=== PATIENT | female | born 1945 | race Caucasian/White ===

== ENCOUNTER 2023-01-29 14:30 | Inpatient (IN) | payer MEDICARE ==
[2023-01-29] MEDS ORDERED: Furosemide 20 MG TAB PO PRN (15:54)
[2023-01-29] MEDS ORDERED: Ondansetron ODT 4 MG TAB PO PRN (18:11)
[2023-01-29] MEDS: Acetaminophen 325 MG TAB PO PRN (22:16)
[2023-01-29] MEDS: Metoprolol Tartrate 25 MG TAB PO SCH (22:16)
[2023-01-30 07:10] LABS: #Lymphocytes 0.8 thou/uL (1.20-3.40); #Monocytes 0.6 thou/uL (0.11-0.59); #Neutrophils 7.5 thou/uL (1.40-6.50); %Basophils 0.3 % (0.0-1.0); %Eosinophils 0.3 % (0.0-10.0); %Lymphocytes 9.3 % (21.0-51.0); %Monocytes 6.8 % (0.0-10.0); %Neutrophils 83.3 % (42.0-75.0); Hemoglobin 13.8 g/dL (12.0-16.0); Mean Corpuscular HGB CONC 33.3 g/dL (32.0-36.0); Mean Corpuscular Volume 81.1 fl (78.0-98.0); Mean Platelet Volume 8.5 fL (7.4-10.4); Platelet Count 218 10x3/uL (130-400); RBC Distribution Width 12.4 % (11.5-14.5); Red Blood Cell (RBC) Count 5.11 mill/uL (4.20-5.40)
[2023-01-30 07:27] LABS: ALT (SGPT) 132 U/L (8-55); AST (SGOT) 77 U/L (5-34); Albumin 3.9 g/dL (3.4-4.8); Alkaline Phosphatase 90 U/L (40-110); Anion Gap 12 mmol/L (10-20); BUN (Urea Nitrogen) 32 mg/dL (9.8-20.1); Bilirubin, Total 1.1 mg/dL (0.2-1.2); Calc. Creatinine Clearance 78 mL/min (70-130); Calcium 10.5 mg/dL (7.8-10.44); Carbon Dioxide 23 mmol/L (23-31); Chloride 109 mmol/L (98-107); Estimated GFR 78; Globulin 2.2 g/dL (2.4-3.5); Glucose 81 mg/dL (83-110); Potassium 4.2 mmol/L (3.5-5.1); Protein, Total 6.1 g/dL (5.8-8.1); Sodium 140 mmol/L (136-145)
[2023-01-30] MEDS: Benzonatate 100 MG CAP PO SCH ×3 (08:30→20:54)
[2023-01-30] MEDS: Metoprolol Tartrate 25 MG TAB PO SCH ×2 (08:30→20:54)
[2023-01-30] MEDS: Dexamethasone 4 MG TAB PO SCH (08:30)
[2023-01-30] MEDS: Clopidogrel Bisulfate 75 MG TAB PO SCH (08:31)
[2023-01-30] MEDS: Amlodipine 5 MG TAB PO SCH (08:31)
[2023-01-30] MEDS ORDERED: Rosuvastatin 10 MG TAB PO SCH (09:00)
[2023-01-30] MEDS ORDERED: Metoclopramide HCl 10 MG TAB PO SCH (09:00)
[2023-01-30] MEDS ORDERED: Albuterol 200 PUFF (6.7GM INHALER) INH PRN (15:35)
[2023-01-30] MEDS ORDERED: Metoclopramide 10 MG/10 ML UDCUP PO PRN (19:34)
[2023-01-31 05:48] LABS: ALT (SGPT) 106 U/L (8-55); AST (SGOT) 47 U/L (5-34); Albumin 3.6 g/dL (3.4-4.8); Alkaline Phosphatase 94 U/L (40-110); Bilirubin, Direct 0.4 mg/dL (0.1-0.3); Protein, Total 6.4 g/dL (5.8-8.1)
[2023-01-31 05:50] LABS: ALT (SGPT) 107 U/L (8-55); AST (SGOT) 48 U/L (5-34); Albumin 3.6 g/dL (3.4-4.8); Alkaline Phosphatase 91 U/L (40-110); Anion Gap 12 mmol/L (10-20); BUN (Urea Nitrogen) 31 mg/dL (9.8-20.1); Calc. Creatinine Clearance 86 mL/min (70-130); Calcium 10.2 mg/dL (7.8-10.44); Carbon Dioxide 20 mmol/L (23-31); Chloride 110 mmol/L (98-107); Estimated GFR 88; Globulin 2.9 g/dL (2.4-3.5); Glucose 91 mg/dL (83-110); Protein, Total 6.5 g/dL (5.8-8.1); Sodium 138 mmol/L (136-145)
[2023-01-31] MEDS: Amlodipine 5 MG TAB PO SCH (09:05)
[2023-01-31] MEDS: Clopidogrel Bisulfate 75 MG TAB PO SCH (09:05)
[2023-01-31] MEDS: Dexamethasone 4 MG TAB PO SCH (09:05)
[2023-01-31] MEDS: Benzonatate 100 MG CAP PO SCH ×3 (09:05→19:59)
[2023-01-31] MEDS: Furosemide 20 MG TAB PO SCH (09:05)
[2023-01-31] MEDS: Metoprolol Tartrate 25 MG TAB PO SCH ×2 (09:06→19:59)
[2023-02-01] MEDS: Dexamethasone 4 MG TAB PO SCH (08:17)
[2023-02-01] MEDS: Benzonatate 100 MG CAP PO SCH ×3 (08:17→21:10)
[2023-02-01] MEDS: Clopidogrel Bisulfate 75 MG TAB PO SCH (08:17)
[2023-02-01] MEDS: Metoprolol Tartrate 25 MG TAB PO SCH ×2 (08:17→21:10)
[2023-02-01] MEDS: Amlodipine 5 MG TAB PO SCH (08:17)
[2023-02-01] MEDS: Furosemide 20 MG TAB PO SCH (08:18)
[2023-02-01] MEDS ORDERED: FLU VACC QS2022-23(65YR UP)/PF 240 MCG/0.7 ML SYRINGE IM ONE (16:15)
[2023-02-02] MEDS: Benzonatate 100 MG CAP PO SCH ×3 (08:28→20:13)
[2023-02-02] MEDS: Clopidogrel Bisulfate 75 MG TAB PO SCH (08:28)
[2023-02-02] MEDS: Dexamethasone 4 MG TAB PO SCH (08:28)
[2023-02-02] MEDS: Metoprolol Tartrate 25 MG TAB PO SCH ×2 (08:28→20:13)
[2023-02-02] MEDS: Furosemide 20 MG TAB PO SCH (08:28)
[2023-02-02] MEDS: Amlodipine 5 MG TAB PO SCH (08:28)
[2023-02-03 05:27] LABS: #Eosinphils 0.1 thou/uL (0.0-0.7); #Lymphocytes 1.2 thou/uL (1.20-3.40); #Monocytes 0.7 thou/uL (0.11-0.59); #Neutrophils 7.4 thou/uL (1.40-6.50); %Basophils 0.3 % (0.0-1.0); %Eosinophils 0.8 % (0.0-10.0); %Lymphocytes 12.3 % (21.0-51.0); %Monocytes 7.9 % (0.0-10.0); %Neutrophils 78.7 % (42.0-75.0); Hemoglobin 13.3 g/dL (12.0-16.0); Mean Corpuscular HGB CONC 33.9 g/dL (32.0-36.0); Mean Corpuscular Hemoglobin 27.6 pg (27.0-31.0); Mean Corpuscular Volume 81.4 fl (78.0-98.0); Mean Platelet Volume 8.7 fL (7.4-10.4); Platelet Count 173 10x3/uL (130-400); RBC Distribution Width 12.8 % (11.5-14.5); Red Blood Cell (RBC) Count 4.82 mill/uL (4.20-5.40); White Blood Cell (WBC) Count 9.4 10x3/uL (4.8-10.8)
[2023-02-03 05:41] LABS: ALT (SGPT) 113 U/L (8-55); AST (SGOT) 51 U/L (5-34); Albumin 3.6 g/dL (3.4-4.8); Alkaline Phosphatase 93 U/L (40-110); Anion Gap 12 mmol/L (10-20); BUN (Urea Nitrogen) 36 mg/dL (9.8-20.1); Calc. Creatinine Clearance 78 mL/min (70-130); Calcium 10.2 mg/dL (7.8-10.44); Carbon Dioxide 21 mmol/L (23-31); Chloride 109 mmol/L (98-107); Estimated GFR 78; Globulin 2.5 g/dL (2.4-3.5); Glucose 92 mg/dL (83-110); Protein, Total 6.1 g/dL (5.8-8.1); Sodium 138 mmol/L (136-145)
[2023-02-03] MEDS: Furosemide 20 MG TAB PO SCH (08:14)
[2023-02-03] MEDS: Dexamethasone 4 MG TAB PO SCH (08:14)
[2023-02-03] MEDS: Benzonatate 100 MG CAP PO SCH ×3 (08:14→21:15)
[2023-02-03] MEDS: Amlodipine 5 MG TAB PO SCH (08:14)
[2023-02-03] MEDS: Clopidogrel Bisulfate 75 MG TAB PO SCH (08:14)
[2023-02-03] MEDS: Metoprolol Tartrate 25 MG TAB PO SCH ×2 (08:14→21:15)
[2023-02-04] MEDS: Benzonatate 100 MG CAP PO SCH ×3 (08:04→20:59)
[2023-02-04] MEDS: Metoprolol Tartrate 25 MG TAB PO SCH ×2 (08:04→20:59)
[2023-02-04] MEDS: Amlodipine 5 MG TAB PO SCH (08:04)
[2023-02-04] MEDS: Furosemide 20 MG TAB PO SCH (08:04)
[2023-02-04] MEDS: Clopidogrel Bisulfate 75 MG TAB PO SCH (08:04)
[2023-02-05 05:18] LABS: #Eosinphils 0.2 thou/uL (0.0-0.7); #Lymphocytes 1.2 thou/uL (1.20-3.40); #Monocytes 0.7 thou/uL (0.11-0.59); #Neutrophils 6.9 thou/uL (1.40-6.50); %Basophils 0.4 % (0.0-1.0); %Lymphocytes 13.5 % (21.0-51.0); %Monocytes 7.7 % (0.0-10.0); %Neutrophils 76.4 % (42.0-75.0); Hemoglobin 14.1 g/dL (12.0-16.0); Mean Corpuscular HGB CONC 33.6 g/dL (32.0-36.0); Mean Corpuscular Hemoglobin 27.3 pg (27.0-31.0); Mean Corpuscular Volume 81.3 fl (78.0-98.0); Mean Platelet Volume 9.1 fL (7.4-10.4); Platelet Count 153 10x3/uL (130-400); RBC Distribution Width 12.9 % (11.5-14.5); Red Blood Cell (RBC) Count 5.18 mill/uL (4.20-5.40)
[2023-02-05 05:36] LABS: ALT (SGPT) 112 U/L (8-55); AST (SGOT) 43 U/L (5-34); Albumin 3.6 g/dL (3.4-4.8); Alkaline Phosphatase 98 U/L (40-110); Anion Gap 13 mmol/L (10-20); BUN (Urea Nitrogen) 39 mg/dL (9.8-20.1); Bilirubin, Total 1.3 mg/dL (0.2-1.2); Calc. Creatinine Clearance 76 mL/min (70-130); Calcium 9.8 mg/dL (7.8-10.44); Carbon Dioxide 22 mmol/L (23-31); Chloride 109 mmol/L (98-107); Estimated GFR 76; Globulin 2.2 g/dL (2.4-3.5); Glucose 92 mg/dL (83-110); Potassium 3.9 mmol/L (3.5-5.1); Protein, Total 5.8 g/dL (5.8-8.1); Sodium 140 mmol/L (136-145)
[2023-02-05] MEDS: Furosemide 20 MG TAB PO SCH (09:07)
[2023-02-05] MEDS: Clopidogrel Bisulfate 75 MG TAB PO SCH (09:07)
[2023-02-05] MEDS: Amlodipine 5 MG TAB PO SCH (09:07)
[2023-02-05] MEDS: Benzonatate 100 MG CAP PO SCH ×3 (09:07→20:51)
[2023-02-05] MEDS: Metoprolol Tartrate 25 MG TAB PO SCH ×2 (09:07→20:51)
[2023-02-05 14:02] LABS: HBCM Index 0.13 S/CO (0-0.79); HBSAg Index 0.28 S/CO (0-0.99); Hep A IgM AB Non-Reactive (NonReactive); Hep A IgM S/CO 0.17 S/CO (0-0.79); Hep B Surf Ag Non-Reactive S/CO (NonReactive); Hep C IgG Ab Non-Reactive (NonReactive); Hep C Index 0.07 S/CO (0-0.79); Hepatitis B Core IgM Abs Non-Reactive (NonReactive)
[2023-02-06] MEDS ORDERED: Sodium Bicarb 50 MEQ/50 ML Abboject 8.4% SYRINGE ONE (07:29)
[2023-02-06] MEDS: Benzonatate 100 MG CAP PO SCH ×3 (09:41→20:25)
[2023-02-06] MEDS: Metoprolol Tartrate 25 MG TAB PO SCH ×2 (09:41→20:25)
[2023-02-06] MEDS: Clopidogrel Bisulfate 75 MG TAB PO SCH (09:41)
[2023-02-06] MEDS: Amlodipine 5 MG TAB PO SCH (09:41)
[2023-02-06] MEDS: Furosemide 20 MG TAB PO SCH (09:41)
[2023-02-07] MEDS: Furosemide 20 MG TAB PO SCH (09:02)
[2023-02-07] MEDS: Metoprolol Tartrate 25 MG TAB PO SCH ×2 (09:02→20:48)
[2023-02-07] MEDS: Benzonatate 100 MG CAP PO SCH ×3 (09:02→20:48)
[2023-02-07] MEDS: Amlodipine 5 MG TAB PO SCH (09:02)
[2023-02-07] MEDS: Clopidogrel Bisulfate 75 MG TAB PO SCH (09:02)
[2023-02-08] MEDS: Benzonatate 100 MG CAP PO SCH ×3 (08:21→21:15)
[2023-02-08] MEDS: Amlodipine 5 MG TAB PO SCH (08:21)
[2023-02-08] MEDS: Furosemide 20 MG TAB PO SCH (08:21)
[2023-02-08] MEDS: Clopidogrel Bisulfate 75 MG TAB PO SCH (08:22)
[2023-02-08] MEDS: Metoprolol Tartrate 25 MG TAB PO SCH ×2 (08:22→21:15)
[2023-02-09] MEDS: Amlodipine 5 MG TAB PO SCH (09:10)
[2023-02-09] MEDS: Benzonatate 100 MG CAP PO SCH ×3 (09:10→21:59)
[2023-02-09] MEDS: Clopidogrel Bisulfate 75 MG TAB PO SCH (09:10)
[2023-02-09] MEDS: Furosemide 20 MG TAB PO SCH (09:10)
[2023-02-09] MEDS: Metoprolol Tartrate 25 MG TAB PO SCH ×2 (09:11→21:59)
[2023-02-09] MEDS: Acetaminophen 325 MG TAB PO PRN (09:11)
[2023-02-10] MEDS: Benzonatate 100 MG CAP PO SCH ×3 (08:25→21:09)
[2023-02-10] MEDS: Metoprolol Tartrate 25 MG TAB PO SCH ×2 (08:25→21:09)
[2023-02-10] MEDS: Furosemide 20 MG TAB PO SCH (08:25)
[2023-02-10] MEDS: Amlodipine 5 MG TAB PO SCH (08:26)
[2023-02-10] MEDS: Clopidogrel Bisulfate 75 MG TAB PO SCH (08:26)
[2023-02-11] MEDS: Benzonatate 100 MG CAP PO SCH ×3 (08:58→20:35)
[2023-02-11] MEDS: Amlodipine 5 MG TAB PO SCH (08:58)
[2023-02-11] MEDS: Furosemide 20 MG TAB PO SCH (08:58)
[2023-02-11] MEDS: Metoprolol Tartrate 25 MG TAB PO SCH ×2 (08:59→20:35)
[2023-02-11] MEDS: Clopidogrel Bisulfate 75 MG TAB PO SCH (08:59)
[2023-02-12] MEDS: Benzonatate 100 MG CAP PO SCH ×3 (08:39→21:32)
[2023-02-12] MEDS: Metoprolol Tartrate 25 MG TAB PO SCH ×2 (08:40→21:32)
[2023-02-12] MEDS: Clopidogrel Bisulfate 75 MG TAB PO SCH (08:41)
[2023-02-12] MEDS: Amlodipine 5 MG TAB PO SCH (08:42)
[2023-02-12] MEDS: Furosemide 20 MG TAB PO SCH (08:43)
[2023-02-13] MEDS: Amlodipine 5 MG TAB PO SCH (09:46)
[2023-02-13] MEDS: Furosemide 20 MG TAB PO SCH (09:46)
[2023-02-13] MEDS: Metoprolol Tartrate 25 MG TAB PO SCH ×2 (09:46→21:40)
[2023-02-13] MEDS: Clopidogrel Bisulfate 75 MG TAB PO SCH (09:46)
[2023-02-13] MEDS: Benzonatate 100 MG CAP PO SCH ×4 (09:46→21:47)
[2023-02-14 06:06] LABS: Platelet Count 130 10x3/uL (130-400)
[2023-02-14] MEDS: Benzonatate 100 MG CAP PO SCH ×3 (09:11→21:20)
[2023-02-14] MEDS: Amlodipine 5 MG TAB PO SCH (09:11)
[2023-02-14] MEDS: Furosemide 20 MG TAB PO SCH (09:12)
[2023-02-14] MEDS: Metoprolol Tartrate 25 MG TAB PO SCH ×2 (09:13→21:20)
[2023-02-14] MEDS: Clopidogrel Bisulfate 75 MG TAB PO SCH (09:13)
[2023-02-15] MEDS: Clopidogrel Bisulfate 75 MG TAB PO SCH (08:49)
[2023-02-15] MEDS: Metoprolol Tartrate 25 MG TAB PO SCH ×2 (08:49→20:26)
[2023-02-15] MEDS: Furosemide 20 MG TAB PO SCH (08:49)
[2023-02-15] MEDS: Benzonatate 100 MG CAP PO SCH ×2 (08:49→15:23)
[2023-02-15] MEDS: Amlodipine 5 MG TAB PO SCH (08:49)
[2023-02-15] MEDS ORDERED: Benzonatate 100 MG CAP PO PRN (16:16)
[2023-02-16] MEDS: Metoprolol Tartrate 25 MG TAB PO SCH ×2 (08:37→21:32)
[2023-02-16] MEDS: Furosemide 20 MG TAB PO SCH (08:37)
[2023-02-16] MEDS: Clopidogrel Bisulfate 75 MG TAB PO SCH (08:37)
[2023-02-16] MEDS: Amlodipine 5 MG TAB PO SCH (08:37)
[2023-02-17] MEDS: Amlodipine 5 MG TAB PO SCH (10:04)
[2023-02-17] MEDS: Metoprolol Tartrate 25 MG TAB PO SCH ×2 (10:05→21:22)
[2023-02-17] MEDS: Furosemide 20 MG TAB PO SCH (10:06)
[2023-02-17] MEDS: Clopidogrel Bisulfate 75 MG TAB PO SCH (10:06)
[2023-02-18] MEDS: Clopidogrel Bisulfate 75 MG TAB PO SCH (09:48)
[2023-02-18] MEDS: Amlodipine 5 MG TAB PO SCH (09:48)
[2023-02-18] MEDS: Furosemide 20 MG TAB PO SCH (09:48)
[2023-02-18] MEDS: Metoprolol Tartrate 25 MG TAB PO SCH ×2 (09:48→20:58)
[2023-02-19 07:19] LABS: ALT (SGPT) 32 U/L (8-55); AST (SGOT) 33 U/L (5-34); Albumin 3.1 g/dL (3.4-4.8); Alkaline Phosphatase 94 U/L (40-110); Anion Gap 14 mmol/L (10-20); BUN (Urea Nitrogen) 20 mg/dL (9.8-20.1); Bilirubin, Total 0.4 mg/dL (0.2-1.2); Calc. Creatinine Clearance 61 mL/min (70-130); Calcium 10.1 mg/dL (7.8-10.44); Carbon Dioxide 22 mmol/L (23-31); Chloride 108 mmol/L (98-107); Estimated GFR 74; Globulin 2.5 g/dL (2.4-3.5); Glucose 95 mg/dL (83-110); Potassium 3.3 mmol/L (3.5-5.1); Protein, Total 5.6 g/dL (5.8-8.1); Sodium 141 mmol/L (136-145)
[2023-02-19] MEDS: Furosemide 20 MG TAB PO SCH (08:39)
[2023-02-19] MEDS: Clopidogrel Bisulfate 75 MG TAB PO SCH (08:40)
[2023-02-19] MEDS: Metoprolol Tartrate 25 MG TAB PO SCH ×2 (08:40→21:20)
[2023-02-19 11:18] LABS: Hemoglobin 10.7 g/dL (12.0-16.0); Platelet Count 176 10x3/uL (130-400)
[2023-02-20] MEDS ORDERED: Potassium Chloride 10 MEQ TAB PO SCH (08:00)
[2023-02-20] MEDS: Furosemide 20 MG TAB PO SCH ×2 (08:03→09:07)
[2023-02-20] MEDS: Metoprolol Tartrate 25 MG TAB PO SCH (08:04)
[2023-02-20] MEDS: Clopidogrel Bisulfate 75 MG TAB PO SCH (08:04)
[2023-02-20 09:19] VITALS: BMI 28.4
[2023-02-20 10:04] VITALS: BP 126/55; TEMP 98
== END 2023-02-20 10:00 | DRG 947 ==
LOC: MADMS 14:30
PROVIDERS: ADMIT Family Medicine; ATTEND Family Medicine
DX: R53.1 Weakness (principal); G93.41 Metabolic encephalopathy; I50.22 Chronic systolic (congestive) heart failure; J98.11 Atelectasis; I25.10 Atherosclerotic heart disease of native coronary artery without angina pectoris; I11.0 Hypertensive heart disease with heart failure; Z66 Do not resuscitate; E87.6 Hypokalemia; Z79.899 Other long term (current) drug therapy; Z95.1 Presence of aortocoronary bypass graft; Z86.73 Personal history of transient ischemic attack (TIA), and cerebral infarction without residual deficits; Z98.890 Other specified postprocedural states; Z86.16 Personal history of COVID-19
CPT/HCPCS: 36415; 36416; 71045; 76705; 80053; 80074; 82140; 82565; 85014; 85018; 85025; 85049; J1650; J8540